=== PATIENT | male | born 1975 ===

== ENCOUNTER 2017-01-24 01:49 | Emergency (ER) | payer MEDICAID ==
[2017-01-24 01:49] VITALS: BMI 39.9
--- NOTE | 2017-01-24 02:45 | C.PDOC ---
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 Pt was seen in ER 1 week ago for same and was Rx motrin but continues to have pain especially while at work. Denies trauma, fall or new injuries, no weakness or numbness. Time Seen by Provider: 01/24/17 02:18 Chief Complaint (Nursing): Upper Extremity Problem/Injury History Per: Patient History/Exam Limitations: no limitations Current Symptoms Are (Timing): Still Present Severity: Moderate Exacerbating Factor(s): Movement Past Medical History Vital Signs: Last Vital Signs Temp 98.4 F 01/24/17 01:57 Pulse 80 01/24/17 01:57 Resp 14 01/24/17 01:57 BP 108/69 01/24/17 01:57 Pulse Ox 97 01/24/17 03:10 - Medical History PMH: No Chronic Diseases Surgical History: Appendectomy - [facility] Procedures OTHER SKIN & SUBQ I D (04/02/15) Family History: States: Unknown Family Hx - Social History Hx Tobacco Use: Yes Hx Alcohol Use: No Hx Substance Use: Yes - Immunization History Hx Tetanus Toxoid Vaccination: No (<10 years) Hx Influenza Vaccination: No Hx Pneumococcal Vaccination: No Review Of Systems Musculoskeletal: Positive for: Shoulder Pain (left) Neurological: Negative for: Weakness, Numbness Physical Exam - Physical Exam Appears: Non-toxic Extremity: No Normal ROM (causes pain to left shoulder), Tenderness (musa lateral aspect of left shoulder), Capillary Refill (<2 sec), No Deformity, No Swelling Extremity: Bilateral: Atraumatic, Normal Color And Temperature Pulses: Left Radial: Normal, Right Radial: Normal Neurological/Psych: Oriented x3 Gait: Steady ED Course And Treatment O2 Sat by Pulse Oximetry: 97 Pulse Ox Interpretation: Normal - Other Rad LT SHOULDER X-Ray: Interpreted by Me, Viewed By Me Interpretation: NO FX OR DISLOCATION Progress Note: PT PLACED IN A SLING FOR SUPPORT Reassessment Condition: Improved Disposition Counseled Patient/Family Regarding: Studies Performed, Diagnosis - Disposition Disposition: HOME/ ROUTINE Disposition Time: 03:04 Condition: STABLE Additional Instructions: Please follow up with PMD or in clinic Continue motrin for pain Use sling for support RETURN TO ER IF WORSE Instructions: Shoulder Sprain (ED) - Clinical Impression Clinical Impression: Sprain of shoulder, left
[2017-01-24 03:49] VITALS: BP 132/74; PULSE 72; RESP 18; TEMP 97.6; O2SAT 98
--- NOTE | 2017-01-24 08:12 | RAD ---
PROCEDURE: Radiographs of the Left Shoulder HISTORY: pain COMPARISON: None FINDINGS: BONES: Normal. No fracture. JOINTS: Normal. Glenohumeral and acromioclavicular joints preserved. No osteoarthritis. SOFT TISSUES: Normal. OTHER FINDINGS: None. IMPRESSION: Normal radiographs of the left shoulder.
== END 2017-01-24 03:46 | disposition home or self-care (01) ==
LOC: C.ER 01:49
DX: S43.402D Unspecified sprain of left shoulder joint, subsequent encounter (principal); X58.XXXD Exposure to other specified factors, subsequent encounter

== ENCOUNTER 2017-06-30 02:49 | Emergency (ER) | payer MEDICAID ==
[2017-06-30 02:49] VITALS: BMI 39.9
[2017-06-30] MEDS ORDERED: Tmp-Smz 800 mg-160 mg DS Tab PO STA (04:13)
[2017-06-30] MEDS ORDERED: Oxycodone/Acetaminophen 5/325 mg Tab PO STA (04:14)
--- NOTE | 2017-06-30 04:16 | C.PDOC ---
History Of Present Illness 41 year old male who presents to the ER with a complaint of intermittent buttock pain/swelling for the past year. Patient states he has had abscesses in the area, and has been seen multiple times for it, and was told he needed surgery; he has not followed up with surgeon, states he "chickened out". Current episode has been worsening over the past 3 days. He denies fever/chills , trauma, rectal bleeding. Time Seen by Provider: 06/30/17 03:33 Chief Complaint (Nursing): Abnormal Skin Integrity History Per: Patient History/Exam Limitations: no limitations Onset/Duration Of Symptoms: Intermittent Episodes, Persistent Current Symptoms Are (Timing): Still Present Location Of Injury: Posterior: Buttock Quality Of Symptoms: Painful Severity: Moderate Past Medical History Reviewed: Historical Data, Nursing Documentation, Vital Signs Vital Signs: Last Vital Signs Temp 98.0 F 06/30/17 04:25 Pulse 99 H 06/30/17 04:25 Resp 18 06/30/17 04:25 BP 121/80 06/30/17 04:25 Pulse Ox 97 06/30/17 06:01 - Medical History PMH: No Chronic Diseases Surgical History: Appendectomy - [facility] Procedures OTHER SKIN & SUBQ I D (04/02/15) Family History: States: No Known Family Hx - Social History Hx Tobacco Use: Yes Hx Alcohol Use: No Hx Substance Use: Yes - Immunization History Hx Tetanus Toxoid Vaccination: No (<10 years) Hx Influenza Vaccination: No Hx Pneumococcal Vaccination: No Review Of Systems Except As Marked, All Systems Reviewed And Found Negative. Constitutional: Negative for: Fever, Chills Respiratory: Negative for: Cough, Shortness of Breath Gastrointestinal: Positive for: Rectal Pain. Negative for: Nausea, Abdominal Pain, Diarrhea, Melena, Hematochezia Physical Exam - Physical Exam Appears: Well, Non-toxic, Other (in mild pain) Skin: Normal Color, Warm, Dry Cardiovascular: Rhythm Regular Respiratory: Normal Breath Sounds, No Rales, No Rhonchi, No Wheezing Gastrointestinal/Abdominal: Normal Exam, Bowel Sounds, Soft, No Tenderness Rectal: Other (2-3cm area of induration at 12 o'clock position (of anus), tender to palpation. No fluctuance. no drainage.) Neurological/Psych: Oriented x3 ED Course And Treatment O2 Sat by Pulse Oximetry: 97 (Room air) Pulse Ox Interpretation: Normal Progress Note: Explained to patient that area is yet yet ready to be drained ( no fluctuance), and that due to proximity of abscess to anal verge, area will need to be drained by surgeon. Patient given PO Keflex, Bactrim and Percocet. He was given Rxs for same, and instructed to apply warm compresses to area and follow up with general surgeon within 1 week. He understands he should return to ED if symptoms worsen. Reevaluation Time: 04:25 Reassessment Condition: Improved Disposition Counseled Patient/Family Regarding: Diagnosis, Need For Followup, Rx Given - Disposition Referrals: Guy Sheikh MD [Staff Provider] - [facility] [Outside] Disposition: HOME/ ROUTINE Disposition Time: 04:25 Condition: STABLE Additional Instructions: FOLLOW UP WITH GENERAL SURGEON IN 1-2 DAYS USE MEDICATIONS DIRECTED APPLY WARM COMPRESSES TO AREA RETURN TO ER IF SYMPTOMS WORSEN Prescriptions: Cephalexin [Keflex] 500 mg PO BID #14 capsule oxyCODONE/Acetaminophen [Percocet 5/325 mg Tab] 1 tab PO QID PRN #15 tab PRN Reason: Pain Sulfamethoxazole/Trimethoprim [Bactrim DS 800 mg-160 mg] 1 tab PO BID #14 tab Instructions: Abscess (ED) Forms: LVL6 (Czech) Print Language: AMERICAN - POA Present On Arrival: None - Clinical Impression Clinical Impression: Perirectal abscess - Scribe Statement The provider has reviewed the documentation as recorded by the Rahatibnoa Peres All medical record entries made by the Rahatibnoa were at my direction and personally dictated by me. I have reviewed the chart and agree that the record accurately reflects my personal performance of the history, physical exam, medical decision making, and the department course for this patient. I have also personally directed, reviewed, and agree with the discharge instructions and disposition.
[2017-06-30] MEDS ORDERED: Tmp-Smz 800 mg-160 mg DS Tab ONE (04:21)
[2017-06-30] MEDS ORDERED: Oxycodone/Acetaminophen 5/325 mg Tab ONE (04:22)
[2017-06-30 04:32] VITALS: BP 121/80; PULSE 99; RESP 18; TEMP 98
[2017-06-30 05:56] VITALS: O2SAT 97
--- NOTE | 2017-07-03 14:21 | CARD ---
APPROVED REPORT EKG Measurement Heart [id number] [id number] <Conclusion> Sinus rhythm with premature atrial complexes Otherwise normal ECG
== END 2017-06-30 04:26 | disposition home or self-care (01) ==
LOC: C.ER 02:49
DX: K61.1 Rectal abscess (principal)

== ENCOUNTER 2017-12-31 18:24 | Emergency (ER) | payer MEDICAID ==
[2017-12-31 18:24] VITALS: BMI 39.9
[2017-12-31 19:45] VITALS: BP 105/70; PULSE 90; TEMP 98.2; O2SAT 98
--- NOTE | 2017-12-31 21:00 | C.PDOC ---
History Of Present Illness 42 y/o male presents to the ED for evaluation of chills, body aches and nasal congestion which began 2 weeks ago. Patient has had sick contact with mother, who is a patient in the ED for evaluation of similar symptoms. Patient denies fever, chest pain, shortness of breath, nausea, vomiting, abdominal pain or gu symptoms. Time Seen by Provider: 12/31/17 20:38 Chief Complaint (Nursing): Flu-like Symptoms History Per: Patient History/Exam Limitations: no limitations Onset/Duration Of Symptoms: Intermittent Episodes (2 weeks ) Current Symptoms Are (Timing): Still Present Location Of Pain: Diffuse Myalgias Associated Symptoms: Chills, Nasal Congestion. denies: Nausea, Vomiting Additional History Per: Patient Past Medical History Reviewed: Historical Data, Nursing Documentation, Vital Signs Vital Signs: Last Vital Signs Temp 98.2 F 12/31/17 19:43 Pulse 90 12/31/17 19:43 Resp 20 12/31/17 21:59 BP 105/70 12/31/17 19:43 Pulse Ox 98 12/31/17 23:37 - Medical History PMH: No Chronic Diseases Surgical History: Appendectomy - [facility] Procedures OTHER SKIN & SUBQ I D (04/02/15) Family History: States: Unknown Family Hx - Social History Hx Tobacco Use: Yes Hx Alcohol Use: No Hx Substance Use: Yes - Immunization History Hx Tetanus Toxoid Vaccination: No (<10 years) Hx Influenza Vaccination: No Hx Pneumococcal Vaccination: No Review Of Systems Constitutional: Positive for: Chills ENT: Positive for: Nose Congestion Cardiovascular: Negative for: Chest Pain Respiratory: Negative for: Shortness of Breath Gastrointestinal: Negative for: Nausea, Vomiting, Abdominal Pain Musculoskeletal: Positive for: Other (generalized body aches ) Physical Exam - Physical Exam Appears: Non-toxic, No Acute Distress Skin: Normal Color, Warm, Dry Head: Atraumatic, Normacephalic Eye(s): bilateral: Normal Inspection, EOMI Ear(s): Left: Normal, Right: TM Obscured By Wax (( pt admits to decreased hearing in the ear, h/o cerumen impaction )) Nose: Other (congestion ) Oral Mucosa: Moist Throat: Normal, No Erythema, No Exudate Neck: Normal ROM, Supple Chest: Symmetrical, No Deformity, No Tenderness Cardiovascular: Rhythm Regular Respiratory: Normal Breath Sounds, No Rales, No Rhonchi, No Wheezing Extremity: Normal ROM, Capillary Refill (less than 2 seconds ) Neurological/Psych: Oriented x3, Normal Speech, Normal Cognition Gait: Steady ED Course And Treatment O2 Sat by Pulse Oximetry: 98 Progress Note: Patient is requesting Tamiflu. He is informed that Tamiflu treatment must be started within 48 hours of onset of symptoms, and will not be effective at this time. On reassessment, patient is resting comfortably, showing no signs of distress and remains afebrile at this time. Patient is stable for discharge. Discussed that symptoms are likely indicative of a viral illness. Advised symptomatic treatment and recommeded f/u with PMD for further evaluation. Disposition - Disposition Disposition: HOME/ ROUTINE Disposition Time: 20:59 Condition: STABLE Additional Instructions: Please follow up with your horse breaker or clinic in 2-5 days for further evaluation. Give your child medications as prescribed. Return to the emergency department at any time if symptoms persist or worsen. Prescriptions: Carbamide Peroxide [Debrox] 5 drop OT BID #1 bottle Guaifen/Dextromethorphan/PE [Mucinex Fast-Max Congest-Cough] 1 each PO Q6 #20 tablet Ibuprofen [Motrin] 600 mg PO Q6 PRN #20 tab PRN Reason: Pain, Mild (1-3) Oseltamivir Phosphate [Tamiflu] 75 mg PO BID #10 capsule Oxymetazoline 0.05% [Afrin 0.05%] 2 spr NS Q12H #1 bottle Instructions: Flu, Adult (DC) Forms: [id number] (Omani) - Clinical Impression Clinical Impression: Influenza, Viral illness, Cerumen impaction - PA / YACHT CAPTAIN / Resident Statement MD/DO has reviewed & agrees with the documentation as recorded. - Scribe Statement The provider has reviewed the documentation as recorded by the Scribe (Edith Lopez) All medical record entries made by the Scribe were at my direction and personally dictated by me. I have reviewed the chart and agree that the record accurately reflects my personal performance of the history, physical exam, medical decision making, and the department course for this patient. I have also personally directed, reviewed, and agree with the discharge instructions and disposition.
[2017-12-31 22:00] VITALS: RESP 20
== END 2017-12-31 21:59 | disposition home or self-care (01) ==
LOC: C.ER 18:24
DX: J11.1 Influenza due to unidentified influenza virus with other respiratory manifestations (principal); B34.9 Viral infection, unspecified; H61.21 Impacted cerumen, right ear

== ENCOUNTER 2018-04-27 02:56 | Emergency (ER) | payer MEDICAID ==
[2018-04-27 02:58] VITALS: BMI 39.9
[2018-04-27 03:13] VITALS: BP 124/79; PULSE 91; RESP 20; TEMP 98; O2SAT 96
[2018-04-27] MEDS ORDERED: Lidocaine 2% MPF (5 ml) Inj ONE (04:06)
[2018-04-27] MEDS ORDERED: Tdap Vaccine 0.5 ml Vial (10-64 yrs) IM ONE (04:12)
--- NOTE | 2018-04-27 04:31 | C.PDOC ---
History Of Present Illness 42 year old male presents to the ED for evaluation of a laceration to his left hand. Patient reports he was using a box packer when he accidentally cut his left hand. Patient denies fever, chills, nausea, vomit, weakness, numbness. Time Seen by Provider: 04/27/18 03:19 Chief Complaint (Nursing): Abnormal Skin Integrity History Per: Patient History/Exam Limitations: no limitations Onset/Duration Of Symptoms: Hrs Current Symptoms Are (Timing): Still Present Location Of Injury: Left: Hand, Anterior: Hand Quality Of Symptoms: Painful Recent travel outside of the [place]: No Additional History Per: Patient Past Medical History Reviewed: Historical Data, Nursing Documentation, Vital Signs Vital Signs: Last Vital Signs Temp 98 F 04/27/18 03:07 Pulse 91 H 04/27/18 03:07 Resp 20 04/27/18 03:07 BP 124/79 04/27/18 03:07 Pulse Ox 96 04/27/18 04:53 - Medical History PMH: No Chronic Diseases Surgical History: Appendectomy - [facility] Procedures OTHER SKIN & SUBQ I D (04/02/15) Family History: States: Unknown Family Hx - Social History Hx Tobacco Use: Yes Hx Alcohol Use: No Hx Substance Use: Yes - Immunization History Hx Tetanus Toxoid Vaccination: No (<10 years) Hx Influenza Vaccination: No Hx Pneumococcal Vaccination: No Review Of Systems Constitutional: Negative for: Fever Musculoskeletal: Positive for: Hand Pain Skin: Positive for: Other (laceration) Neurological: Negative for: Weakness, Numbness Physical Exam - Physical Exam Appears: Non-toxic, No Acute Distress Skin: Normal Color, Warm, Dry Head: Atraumatic, Normacephalic Eye(s): bilateral: Normal Inspection Neck: Normal ROM, Supple Extremity: Normal ROM, No Tenderness, Capillary Refill (< 2 seconds), No Swelling, Other (1.5 cm superficial laceration to the thenar aspect of left hand , minimal active bleeding) Extremity: Bilateral: Normal Color And Temperature Pulses: Left Radial: Normal, Right Radial: Normal Neurological/Psych: Oriented x3, Normal Speech, Normal Motor, Normal Sensation Gait: Steady ED Course And Treatment O2 Sat by Pulse Oximetry: 96 (ON RA) Pulse Ox Interpretation: Normal Progress Note: Patient refused sutures. On reassessment, patient is resting comfortably, and is in no acute distress. Patient was instructed to follow up with physician/clinic in 1-2 days for further evaluation. Laceration - Laceration Repair left hand Wound Length (In cm): 1 Description Of Wound: Linear Wound Cleansed With: Betadine Wound Examination: Irrigated With Saline, No FB With Wound Exploration Wound Closure: Steri Strips (x2), Skin Glue Wound Complexity: Simple Disposition Counseled Patient/Family Regarding: Diagnosis, Need For Followup - Disposition Disposition: HOME/ ROUTINE Disposition Time: 04:29 Condition: STABLE Additional Instructions: Please follow up with PMD in 2days for wound check Keep wound dry Return to ER if worse Instructions: Laceration Repair With Glue (DC) Forms: [employer] (Welsh), Work Excuse - Clinical Impression Clinical Impression: Hand laceration - PA / E COMMERCE SOLUTION ARCHITECT / Resident Statement MD/DO has reviewed & agrees with the documentation as recorded. - Scribe Statement The provider has reviewed the documentation as recorded by the Scribe Ben Ibarra All medical record entries made by the Scribe were at my direction and personally dictated by me. I have reviewed the chart and agree that the record accurately reflects my personal performance of the history, physical exam, medical decision making, and the department course for this patient. I have also personally directed, reviewed, and agree with the discharge instructions and disposition.
== END 2018-04-27 04:36 | disposition home or self-care (01) ==
LOC: C.ER 02:56
DX: S61.412A Laceration without foreign body of left hand, initial encounter (principal); W45.8XXA Other foreign body or object entering through skin, initial encounter

== ENCOUNTER 2019-01-17 19:53 | Emergency (ER) | payer MEDICAID, OTHER ==
[2019-01-17 19:53] VITALS: BMI 39.9
[2019-01-17 20:27] VITALS: RESP 18
[2019-01-17] MEDS ORDERED: Fluorescein 1 mg Ophthalmic Strip ONE (20:54)
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
[2019-01-17 21:50] VITALS: BP 123/81; PULSE 100; TEMP 98.1
[2019-01-18 06:18] VITALS: O2SAT 96
== END 2019-01-17 21:50 | disposition home or self-care (01) ==
LOC: C.ER 19:53
DX: S00.212A Abrasion of left eyelid and periocular area, initial encounter (principal); Y08.89XA Assault by other specified means, initial encounter

== ENCOUNTER 2019-02-01 16:19 | Emergency (ER) | payer SELFPAY ==
[2019-02-01 16:21] VITALS: BMI 39.9
[2019-02-01 16:49] VITALS: BP 119/78; PULSE 88; RESP 17; TEMP 98.3; O2SAT 98
[2019-02-01] MEDS ORDERED: Tetanus/Diphtheria Toxoids 0.5 ml Syringe IM ONE (17:09)
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
[2019-02-01] MEDS ORDERED: Tdap Vaccine 0.5 ml Vial (10-64 yrs) IM ONE (17:34)
[2019-02-01 17:41] LABS: BASO # 0.1 K/uL (0.0-0.2); BASO % 0.3 % (0.0-2.0); EOS # 0.2 K/uL (0.0-0.7); EOS % 0.9 % (0.0-4.0); HEMOGLOBIN 16.3 g/dL (12.0-18.0); INR 1.2; LYMPH # 2.1 K/uL (1.0-4.3); LYMPH % 9.9 % (20.0-40.0); MEAN CORPUSCULAR HEMOGLOBIN 30.9 pg (27.0-31.0); MEAN CORPUSCULAR HGB CONC 34.4 g/dL (33.0-37.0); MEAN PLATELET VOLUME 7.8 fL (7.2-11.7); MONO # 1.2 K/uL (0.0-0.8); MONO % 5.9 % (0.0-10.0); NEUT # 17.6 K/uL (1.8-7.0); PLATELET COUNT 309 K/uL (130-400); PROTHROMBIN TIME 12.8 SECONDS (9.7-12.2); RBC 5.27 Mil/uL (4.40-5.90); RED CELL DISTRIBUTION WIDTH 13.7 % (11.5-14.5); WHITE BLOOD COUNT 21.2 K/uL (4.8-10.8)
[2019-02-01 17:44] LABS: BLOOD UREA NITROGEN 17 mg/dL (9-20)
[2019-02-01 17:45] LABS: ALB/GLOB RATIO 1.5 (1.0-2.1); ALBUMIN 4.5 g/dL (3.5-5.0); ALT/SGPT 56 U/L (21-72); AST/SGOT 51 U/L (17-59); CALCIUM 9.7 mg/dl (8.6-10.4); GFR NON-AFRICAN AMERICAN > 60
--- NOTE | 2019-02-01 17:46 | RAD ---
Date of service: 02/01/2019 PROCEDURE: CHEST RADIOGRAPH, 1 VIEW HISTORY: TRAUMA COMPARISON: None available. FINDINGS: LUNGS: Clear. PLEURA: No pneumothorax or pleural fluid seen. CARDIOVASCULAR: No aortic atherosclerotic calcification present. Normal. OSSEOUS STRUCTURES: No significant abnormalities. VISUALIZED UPPER ABDOMEN: Normal. OTHER FINDINGS: None. IMPRESSION: No active disease.
--- NOTE | 2019-02-01 17:47 | RAD ---
Date of service: 02/01/2019 PROCEDURE: Radiographs of the pelvis. HISTORY: TRAUMA COMPARISON: None. FINDINGS: BONES: Pelvic Bones: Unremarkable. Hips: Grossly unremarkable. JOINTS: Sacroiliac Joints: Unremarkable. Pubic Symphysis: Unremarkable. OTHER FINDINGS: None. IMPRESSION: Unremarkable radiographs of the pelvis.
[2019-02-01 18:25] LABS: BANDS 7 % (0-2); EOSINOPHIL 1 % (0-4); LYMPHOCYTE 9 % (20-40); MONOCYTE 2 % (0-10); NEUTROPHIL 75 % (50-75); PLATELET ESTIMATE NORMAL (NORMAL); REACTIVE LYMPHOCYTES 6 % (0-0); TOTAL CELLS COUNTED 100
[2019-02-01] MEDS ORDERED: Bacitracin 500 Units/gm Oint Foilpak UD ONE (18:36)
--- NOTE | 2019-02-02 09:41 | RAD ---
Date of service: 02/01/2019 PROCEDURE: Bilateral elbows HISTORY: TRAUMA COMPARISON: Correlation made with concurrent radiographs of the left forearm. TECHNIQUE: Three standard views of the left elbow performed FINDINGS: No evidence of acute displaced fracture nor dislocation. The osseous structures appear intact. No significant joint effusion. Note is made of an in situ Angiocath within the soft tissues right antecubital fossa. IMPRESSION: No acute fracture seen. If symptoms persist or occult fracture suspected clinically consider repeat radiographs in 7-10 days as most fractures should become radiographically evident.
--- NOTE | 2019-02-02 10:03 | RAD ---
Date of service: 02/01/2019 PROCEDURE: Bilateral forearms HISTORY: TRAUMA COMPARISON: Correlation made with concurrent radiographs of both elbows TECHNIQUE: AP and lateral views of the right and left forearms. FINDINGS: No evidence of acute displaced fracture nor dislocation. The osseous structures appear grossly intact. Soft tissues unremarkable. Situ angiocatheter within the right antecubital fossa. IMPRESSION: No evidence of acute displaced fracture nor dislocation. If symptoms persist or occult fracture suspected clinically recommend repeat radiographs in 5-10 days as most fractures should become radiographically evident this timeframe
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
== END 2019-02-01 19:09 | disposition home or self-care (01) ==
LOC: C.ER 16:19
DX: S20.219A Contusion of unspecified front wall of thorax, initial encounter (principal); S06.0X1A Concussion with loss of consciousness of 30 minutes or less, initial encounter; S40.812A Abrasion of left upper arm, initial encounter; S40.811A Abrasion of right upper arm, initial encounter; S80.812A Abrasion, left lower leg, initial encounter; S80.811A Abrasion, right lower leg, initial encounter; V28.4XXA Motorcycle driver injured in noncollision transport accident in traffic accident, initial encounter; Y92.410 Unspecified street and highway as the place of occurrence of the external cause

== ENCOUNTER 2019-02-07 15:19 | Emergency (ER) | payer MEDICAID ==
[2019-02-07 15:25] VITALS: BMI 38.0
[2019-02-07 15:30] VITALS: RESP 18
--- NOTE | 2019-02-07 16:10 | C.PDOC ---
History Of Present Illness 43 year old male presents to the ED for evaluation of hives on back and chest for 4 days. Reports associated itching but denies fever, chills, throat pain, tongue swelling, shortness of breath or any other symptoms. Notes rash might have started status post taking Excedrin. Also reports burning sensation in his stomach. Denies history of allergies. Time Seen by Provider: 02/07/19 15:39 Chief Complaint (Nursing): Allergic Reaction History Per: Patient History/Exam Limitations: no limitations Onset/Duration Of Symptoms: Days Current Symptoms Are (Timing): Still Present Location Of Injury: Anterior: Back (rash), Chest (rash) Quality Of Symptoms: Itching Past Medical History Reviewed: Historical Data, Nursing Documentation, Vital Signs Vital Signs: Last Vital Signs Temp 98.5 F 02/07/19 15:25 Pulse 98 H 02/07/19 15:25 Resp 18 02/07/19 15:25 BP 126/89 02/07/19 15:25 Pulse Ox 98 02/07/19 15:25 - Medical History PMH: No Chronic Diseases Surgical History: Appendectomy, Hernia Repair - [facility] Procedures OTHER SKIN & SUBQ I D (04/02/15) Family History: States: No Known Family Hx - Social History Hx Tobacco Use: Yes Hx Alcohol Use: No Hx Substance Use: Yes - Immunization History Hx Tetanus Toxoid Vaccination: Yes Hx Influenza Vaccination: No Hx Pneumococcal Vaccination: No Review Of Systems Except As Marked, All Systems Reviewed And Found Negative. Constitutional: Negative for: Fever, Chills ENT: Negative for: Mouth Swelling, Throat Pain, Throat Swelling Cardiovascular: Negative for: Chest Pain Respiratory: Negative for: Shortness of Breath Gastrointestinal: Negative for: Nausea, Vomiting, Diarrhea Skin: Positive for: Rash (itching rash ) Physical Exam - Physical Exam Appears: Non-toxic, No Acute Distress Skin: Warm, Dry, Other (scattered urticaria to back and chest ) Head: Atraumatic, Normacephalic Eye(s): bilateral: PERRL, EOMI Nose: Normal Oral Mucosa: Moist Tongue: Normal Appearing, No Swelling Lips: Normal Appearing, No Swelling Teeth: Normal Dentition Gingiva: Normal Appearing Throat: Normal, No Erythema, No Exudate Neck: Normal ROM, Supple Chest: Symmetrical Cardiovascular: Rhythm Regular Respiratory: Normal Breath Sounds, No Rales, No Rhonchi, No Wheezing Gastrointestinal/Abdominal: Soft, No Tenderness Back: No Vertebral Tenderness Extremity: Normal ROM, No Swelling Neurological/Psych: Oriented x3, Normal Speech, Normal Motor Gait: Steady ED Course And Treatment O2 Sat by Pulse Oximetry: 98 (RA) Pulse Ox Interpretation: Normal Medical Decision Making Medical Decision Making: Plan - Benadryl 25mg PO - Pepcid 20mg PO - Prednisone 40mg PO Patient is resting comfortably, tolerating PO, has no shortness of breath, has no intra-oral swelling, no stridor. Patient notes that pruritus has improved.. Patient was advised to avoid potential allergens, and to follow up with physician in 1-2 days. Disposition - Disposition Referrals: Antonio Varma MD [Non-Staff] - Disposition: HOME/ ROUTINE Disposition Time: 17:13 Condition: IMPROVED Additional Instructions: Follow up with the medical doctor within 1-2 days. Return if worsened. 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 - Scribe Statement The provider has reviewed the documentation as recorded by the Rahatibnoa Sharpe All medical record entries made by the Scribnoa were at my direction and personally dictated by me. I have reviewed the chart and agree that the record accurately reflects my personal performance of the history, physical exam, medical decision making, and the department course for this patient. I have also personally directed, reviewed, and agree with the discharge instructions and disposition.
[2019-02-07 17:23] VITALS: BP 112/76; PULSE 80; TEMP 98.8
[2019-02-07 22:51] VITALS: O2SAT 98
== END 2019-02-07 17:22 | disposition home or self-care (01) ==
LOC: C.ER 15:19
DX: L50.0 Allergic urticaria (principal); M54.5 Low back pain; Z72.0 Tobacco use

== ENCOUNTER 2019-03-01 16:01 | Emergency (ER) | payer MEDICAID ==
[2019-03-01 16:11] VITALS: BMI 39.1
[2019-03-01] MEDS ORDERED: Piperacillin/Tazobact 3.375 GM in Sodium Chloride 100 ML IVPB STA (17:05)
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
[2019-03-01] MEDS ORDERED: Iodixanol 320 MG/ML 100 ML BOTTLE IV ONE (17:21)
[2019-03-01] MEDS ORDERED: Piperacillin/Tazobact 3.375 gm 100 ML IVPB ONE (18:20)
[2019-03-01 18:21] LABS: BASO # 0.1 K/uL (0.0-0.2); BASO % 0.4 % (0.0-2.0); EOS % 0.2 % (0.0-4.0); HEMOGLOBIN 15.9 g/dL (12.0-18.0); LYMPH # 1.8 K/uL (1.0-4.3); LYMPH % 8.9 % (20.0-40.0); MEAN CELL VOLUME 90.4 fL (80.0-94.0); MEAN CORPUSCULAR HEMOGLOBIN 31.3 pg (27.0-31.0); MEAN CORPUSCULAR HGB CONC 34.6 g/dL (33.0-37.0); MEAN PLATELET VOLUME 7.7 fL (7.2-11.7); MONO # 1.4 K/uL (0.0-0.8); MONO % 7.1 % (0.0-10.0); NEUT # 16.6 K/uL (1.8-7.0); NEUT % 83.4 % (50.0-75.0); PLATELET COUNT 274 K/uL (130-400); RBC 5.09 Mil/uL (4.40-5.90); RED CELL DISTRIBUTION WIDTH 13.6 % (11.5-14.5); WHITE BLOOD COUNT 19.9 K/uL (4.8-10.8)
[2019-03-01 18:48] LABS: BANDS 2 % (0-2); LYMPHOCYTE 8 % (20-40); MONOCYTE 6 % (0-10); NEUTROPHIL 84 % (50-75); PLATELET ESTIMATE NORMAL (NORMAL); TOTAL CELLS COUNTED 100
[2019-03-01 19:01] LABS: ALB/GLOB RATIO 1.4 (1.0-2.1); ALBUMIN 4.2 g/dL (3.5-5.0); ALT/SGPT 52 U/L (21-72); AST/SGOT 29 U/L (17-59); BLOOD UREA NITROGEN 7 mg/dL (9-20); CALCIUM 9.1 mg/dl (8.6-10.4); GFR NON-AFRICAN AMERICAN > 60
[2019-03-01] MEDS ORDERED: DiphenhydrAMINE 50 mg/ml Inj IVP STA (19:27)
[2019-03-01] MEDS ORDERED: DiphenhydrAMINE 50 mg/ml Inj ONE (19:33)
[2019-03-01 20:10] VITALS: BP 125/70; PULSE 88; RESP 20; TEMP 98.9; O2SAT 99
--- NOTE | 2019-03-02 10:15 | CT ---
CT right hip HISTORY: Abscess. COMPARISON: CT dated 02/01/2019 Technique: Multiple contiguous axial images were performed through the right hip with the use of intravenous contrast. Subsequently, sagittal and coronal reformatted images were obtained. This CT exam was performed using one or more of the following dose reduction techniques: Automated exposure control, adjustment of the mA and/or kV according to patient size, and/or use of iterative reconstruction technique. Findings: Large enhancing ovoid shaped collection seen overlying the left gluteus musculature within the posterior subcutaneous soft tissues of the left buttock and hip with associated reticulation and edema within the subcutaneous soft tissues measuring 11.7 x 2.1 x 11.1 centimeters concerning for an abscess collection. Clinical correlation. The reticulation and edema abut the adjacent gluteus musculature; however, there does not appear to be any discrete extension of the abscess collection to the gluteus musculature or the adjacent bony structures of the right hip. Right inguinal lymphadenopathy measuring up to 2.8 x 1.7 centimeters. Clinical correlation. Mild narrowing of the right hip joint space with subchondral sclerosis, subchondral cyst formation, and osteophytosis. Mild bony fragmentation and or osteophytosis noted at the anterior superior acetabulum. Few punctate bone island seen within the acetabulum. Partially calcified and prominent prostate. Clinical correlation. Impression: Large enhancing ovoid shaped collection seen overlying the left gluteus musculature within the posterior subcutaneous soft tissues of the left buttock and hip with associated reticulation and edema within the subcutaneous soft tissues measuring 11.7 x 2.1 x 11.1 centimeters concerning for an abscess collection. Clinical correlation. The reticulation and edema abut the adjacent gluteus musculature; however, there does not appear to be any discrete extension of the abscess collection to the gluteus musculature or the adjacent bony structures of the right hip. Right inguinal lymphadenopathy measuring up to 2.8 x 1.7 centimeters. Clinical correlation. Mild narrowing of the right hip joint space with subchondral sclerosis, subchondral cyst formation, and osteophytosis. Mild bony fragmentation and or osteophytosis noted at the anterior superior acetabulum. Few punctate bone island seen within the acetabulum. Partially calcified and prominent prostate. Clinical correlation. A preliminary report was generated at 8:43 p.m. on 03/01/[address] David Steen from [employer].
== END 2019-03-01 21:26 | disposition left against medical advice (07) ==
LOC: C.ER 16:01
DX: L03.115 Cellulitis of right lower limb (principal); L02.415 Cutaneous abscess of right lower limb
CPT/HCPCS: 73701; 80053; 85025; 87040; 87070; 87181; 87804; 96365; 96375; 99285; J1200; J2405; J2543; Q9967

== ENCOUNTER 2019-03-02 17:09 | Emergency (ER) | payer MEDICAID | END 2019-03-02 19:04 | disposition home or self-care (01) | LOC: C.ER 17:09 ==

== ENCOUNTER 2019-03-04 10:52 | Emergency (ER) | payer MEDICAID ==
[2019-03-04 10:53] VITALS: BMI 39.1
[2019-03-04 11:07] VITALS: BP 130/90; PULSE 94; RESP 18; TEMP 98.3; O2SAT 97
--- NOTE | 2019-03-04 11:26 | C.PDOC ---
Time Seen by Provider: 03/04/19 11:11 Chief Complaint (Nursing): Medical Clearance Past Medical History Vital Signs: Last Vital Signs Temp 98.3 F 03/04/19 11:04 Pulse 94 H 03/04/19 11:04 Resp 18 03/04/19 11:04 BP 130/90 03/04/19 11:04 Pulse Ox 97 03/04/19 11:04 Surgical History: Appendectomy, Hernia Repair - [facility] Procedures OTHER SKIN & SUBQ I D (04/02/15) Family History: States: Unknown Family Hx - Social History Hx Tobacco Use: Yes Hx Alcohol Use: No Hx Substance Use: Yes - Immunization History Hx Tetanus Toxoid Vaccination: Yes Hx Influenza Vaccination: No Hx Pneumococcal Vaccination: No ED Course And Treatment O2 Sat by Pulse Oximetry: 97 Disposition Counseled Patient/Family Regarding: Diagnosis, Need For Followup, Rx Given - Disposition Referrals: [facility] at [facility] [Outside] Constanza Yee MD [Staff Provider] - Disposition: HOME/ ROUTINE Disposition Time: 11:23 Condition: STABLE Additional Instructions: Continue previously prescribed meds as instructed start zofran as needed for nausea Keep wound dry and clean Follow up with general surgeon in 1-2 days for further evaluation of area Return to the ED if you develop high fevers or worsening symptoms Prescriptions: Ondansetron [Zofran] 8 mg PO Q8H PRN #30 tab PRN Reason: Nausea/Vomiting Instructions: Skin Abscess, Wound Care (DC) - Clinical Impression Clinical Impression: Abscess
--- NOTE | 2019-03-04 11:27 | C.PDOC ---
History Of Present Illness 43 y/o male returns to ED today for a wound check. Patient was recently seen here for right buttock abscess and had I&D done. Today he states that he noticed some active draining but denies any fever, chills, headache, dizziness, vomiting, or diarrhea. He does report of nausea and believes it may be due to the antibiotics that hes on despite being on Pepcid. Time Seen by Provider: 03/04/19 11:11 Chief Complaint (Nursing): Medical Clearance History Per: Patient History/Exam Limitations: no limitations Onset/Duration Of Symptoms: Days Current Symptoms Are (Timing): Still Present Past Medical History Reviewed: Historical Data, Nursing Documentation, Vital Signs Vital Signs: Last Vital Signs Temp 98.3 F 03/04/19 11:04 Pulse 94 H 03/04/19 11:04 Resp 18 03/04/19 11:04 BP 130/90 03/04/19 11:04 Pulse Ox 97 03/04/19 11:04 Surgical History: Appendectomy, Hernia Repair - [facility] Procedures OTHER SKIN & SUBQ I D (04/02/15) Family History: States: No Known Family Hx - Social History Hx Tobacco Use: Yes Hx Alcohol Use: No Hx Substance Use: Yes - Immunization History Hx Tetanus Toxoid Vaccination: Yes Hx Influenza Vaccination: No Hx Pneumococcal Vaccination: No Review Of Systems Constitutional: Negative for: Fever, Chills Cardiovascular: Negative for: Chest Pain Respiratory: Negative for: Shortness of Breath Gastrointestinal: Positive for: Nausea. Negative for: Vomiting, Diarrhea Musculoskeletal: Positive for: Other (Right Buttocks Abscess) Neurological: Negative for: Headache, Dizziness Physical Exam - Physical Exam Appears: Non-toxic, No Acute Distress Skin: Warm, Dry, Other (Dressing removed from right buttocks, wet with yellow drainage; packing removed, no drainage expressed, area still indurated) Head: Atraumatic, Normacephalic Eye(s): bilateral: Normal Inspection Oral Mucosa: Moist Tongue: Normal Appearing Lips: Normal Appearing Neck: Supple Cardiovascular: Rhythm Regular Respiratory: Normal Breath Sounds, No Wheezing Gastrointestinal/Abdominal: Soft, No Tenderness Extremity: Bilateral: Atraumatic, Normal ROM Neurological/Psych: Oriented x3, Normal Speech, Normal Cognition, Normal Motor, Normal Sensation ED Course And Treatment O2 Sat by Pulse Oximetry: 97 (RA) Pulse Ox Interpretation: Normal Medical Decision Making Medical Decision Making: Packing replaced and dressing applied to affected area of the right buttocks. Dr. Sheldon also evaluated the site and recommended patient to be seen by surgeon for further evaluation. Patient verbalizes understanding and is in agreement with plan. Patient is stable for discharge. Advised to return to ED if it develops high fever or worsening symptoms. Disposition - Disposition Referrals: [facility] at [facility] [Outside] Constanza Yee MD [Staff Provider] - Disposition: HOME/ ROUTINE Disposition Time: 11:32 Condition: STABLE Additional Instructions: Continue previously prescribed meds as instructed start zofran as needed for nausea Keep wound dry and clean Follow up with general surgeon in 1-2 days for further evaluation of area Return to the ED if you develop high fevers or worsening symptoms Prescriptions: Ondansetron [Zofran] 8 mg PO Q8H PRN #30 tab PRN Reason: Nausea/Vomiting Instructions: Skin Abscess, Wound Care (DC) Forms: [facility] (Urdu) - Clinical Impression Clinical Impression: Abscess - PA / [employer] RADIO OPERATOR / Resident Statement MD/DO has reviewed & agrees with the documentation as recorded. - Scribe Statement The provider has reviewed the documentation as recorded by the Scribe Cydney Parham All medical record entries made by the Keny were at my direction and personally dictated by me. I have reviewed the chart and agree that the record accurately reflects my personal performance of the history, physical exam, medical decision making, and the department course for this patient. I have also personally directed, reviewed, and agree with the discharge instructions and disposition.
== END 2019-03-04 12:08 | disposition home or self-care (01) ==
LOC: C.ER 10:52
DX: L02.31 Cutaneous abscess of buttock (principal)